=== PATIENT | male | born 1965 | race Caucasian/White ===

== ENCOUNTER 2017-08-18 09:44 | Emergency (ER) | payer BC, OTHER ==
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
[2017-08-18 09:56] VITALS: BP 131/88; PULSE 88; TEMP 98.6; BMI 26.2
== END 2017-08-18 10:53 | disposition home or self-care (01) ==
LOC: FER 09:44
PROC: 0HQ1XZZ Repair Face Skin, External Approach (ICD-10-PCS; principal; 2017-08-18)
DX: S01.112A Laceration without foreign body of left eyelid and periocular area, initial encounter (principal); W50.0XXA Accidental hit or strike by another person, initial encounter; Y93.67 Activity, basketball; Y92.310 Basketball court as the place of occurrence of the external cause
CPT/HCPCS: 99282-25

== ENCOUNTER 2017-08-23 08:51 | Emergency (ER) | payer BC ==
[2017-08-23 08:54] VITALS: BP 126/82; PULSE 81; TEMP 98.6; BMI 25.7
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
== END 2017-08-23 09:25 | disposition home or self-care (01) ==
LOC: FER 08:51
DX: Z48.02 Encounter for removal of sutures (principal)
CPT/HCPCS: 99281-25